=== PATIENT | female | born 1980 | race Caucasian/White ===

== ENCOUNTER 2017-05-05 09:42 | Emergency (ER) | payer MEDICAID ==
[~2017-05-05] VITALS: Ht 165.1 cm; Wt 100.0 kg
[~2017-05-05 09:42] MED LIST: ALBU6.7H INH; ALBU8I INH; ALPR.25 PO; HYDR-3535 PO; IBUP-238 PO; IBUP800T23 PO
[2017-05-05 09:44] VITALS: BP_SYST 118; BP_SYST 170; BP_DIAS 72; BP_DIAS 95; PULSE 105; PULSE 77; RESP 14; RESP 18; TEMP 97.7; TEMP 98.6; O2SAT 98
[2017-05-05] MEDS ORDERED: ALBUAER3 INH (09:53)
[2017-05-05] MEDS ORDERED: HYDR-3583 PO (09:53)
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
--- NOTE | 2017-05-05 10:48 | RADRPT ---
EXAM DATE/TIME: 05/05/2017 10:37 [facility] COMPARISON: CT BRAIN W/O CONTRAST, November 12, 2014, 12:19. INDICATIONS : Fall, laceration on bottom lip, dizziness, blurred vision RADIATION DOSE: 42.32 CTDIvol (mGy) MEDICAL HISTORY : None SURGICAL HISTORY : Tonsillectomy. ENCOUNTER: Initial ACUITY: 1 day PAIN SCALE: 9/10 LOCATION: Bilateral cranial TECHNIQUE: Multiple contiguous axial images were obtained of the head. Using automated exposure control and adj ustment of the mA and/or kV according to patient size, radiation dose was kept as low as reasonably a chievable to obtain optimal diagnostic quality images. DICOM format image data is available electro nically for review and comparison. FINDINGS: CEREBRUM: The ventricles are normal for age. No evidence of midline shift, mass lesion, hemorrhage or acute in farction. No extra-axial fluid collections are seen. POSTERIOR FOSSA: The cerebellum and brainstem are intact. The 4th ventricle is midline. The cerebellopontine angle i s unremarkable. EXTRACRANIAL: The visualized portion of the orbits is intact. SKULL: The calvaria is intact. No evidence of skull fracture. CONCLUSION: No acute disease. No significant change has occurred. Jason Ram MD on May 05, 2017 at 10:43 Board Certified Radiologist. This report was verified electronically.
--- NOTE | 2017-05-05 10:58 | RADRPT ---
EXAM DATE/TIME: 05/05/2017 10:37 [facility] COMPARISON: No previous studies available for comparison. INDICATIONS : Fall, laceration on bottom lip, dizziness, blurred vision RADIATION DOSE: 62.74 CTDIvol (mGy) MEDICAL HISTORY : SURGICAL HISTORY : Tonsillectomy. ENCOUNTER: Initial ACUITY: 1 day PAIN SCORE: 9/10 LOCATION: Bilateral facial TECHNIQUE: Volumetric scanning of the facial bones was performed. Using automated exposure control and adjustme nt of the mA and/or kV according to patient size, radiation dose was kept as low as reasonably achiev able to obtain optimal diagnostic quality images. DICOM format image data is available electronicThe [employer] y for review and comparison. FINDINGS: ORBITS: The orbital and infraorbital osseous structures are intact. The retroconal structures have a normal configuration. No radiopaque foreign bodies are seen. NASAL BONE: The nasal bone and maxillary spine are intact ZYGOMATIC ARCHES: Symmetric without evidence of fracture. SINUSES: Mild mucosal disease in some posterior right ethmoid air cells. NASAL CAVITY: The nasal septum is intact and midline. The lacrimal ducts are intact. SOFT TISSUES: Swelling of the lips. INTRACRANIAL: No intracranial air seen. CRIBIFORM PLATE: Grossly intact. CONCLUSION: No evidence of facial fracture Shaun Kelly MD on May 05, 2017 at 10:53 Board Certified Radiologist. This report was verified electronically.
[2017-05-05] MEDS ORDERED: MORPHINE SULFATE 2 MG/ML INJ IM ONE (11:00)
[2017-05-05] MEDS ORDERED: ONDANSETRON HCL 4 MG/2 ML VIAL IM ONE (11:00)
--- NOTE | 2017-05-05 11:29 | RADRPT ---
EXAM DATE/TIME: 05/05/2017 11:06 [facility] COMPARISON: No previous studies available for comparison. INDICATIONS : Fall. Right sided rib pain. MEDICAL HISTORY : None. SURGICAL HISTORY : None. ENCOUNTER: Initial ACUITY: 1 day PAIN SCORE: 6/10 LOCATION: Right anterior ribs FINDINGS: Multiple views of the right ribs were performed. There is no evidence of displaced fracture. No shonna tructive lesions or areas of periosteal thickening are seen. Expiratory view of the chest is negativ e for pneumothorax. The mediastinal structures are midline. CONCLUSION: No acute disease. No evidence of displaced rib fracture. Jason Ram MD on May 05, 2017 at 11:27 Board Certified Radiologist. This report was verified electronically.
[2017-05-05 11:31] VITALS: RESP 18
--- NOTE | 2017-05-05 11:31 | RADRPT ---
EXAM DATE/TIME: 05/05/2017 11:13 [facility] COMPARISON: SHOULDER RIGHT COMPLETE (>2VWS), December 18, 2014, 22:52. INDICATIONS : Fall. Right shoulder pain. MEDICAL HISTORY : None. SURGICAL HISTORY : None. ENCOUNTER: Initial ACUITY: 1 day PAIN SCORE: 8/10 LOCATION: Right shoulder FINDINGS: Multiple view examination of the right shoulder demonstrates no evidence of fracture or dislocation. The glenohumeral and acromioclavicular joints are maintained. There is normal range of motion betwe en internal and external rotation. Bony mineralization is normal. CONCLUSION: No acute disease. Jason Ram MD on May 05, 2017 at 11:28 Board Certified Radiologist. This report was verified electronically.
--- NOTE | 2017-05-05 12:20 | PD ---
Physical Exam Time Seen by Provider: 12:19 Data Data Last Documented VS Vital Signs Date Time Temp Pulse Resp B/P (MAP) Pulse Ox O2 Delivery O2 Flow Rate FiO2 05/05/17 11:31 18 05/05/17 10:21 99 Room Air 05/05/17 09:44 98.6 105 170/95 (120) Orders Orders Ct Brain W/O Iv Contrast(Rout) (05/05/17 10:21) Ct Facial Bones W/O Iv Cont (05/05/17 10:21) Shoulder, Complete (>2vws) (05/05/17 10:32) Ribs, Uni (W/Exp Cxr-Min 3vw) (05/05/17 10:32) Morphine Inj (Morphine Inj) (05/05/17 11:00) Ondansetron Inj (Zofran Inj) (05/05/17 11:00) MDM Medical Record Reviewed: Yes Supervised Visit with CECILY: No Procedures Procedure Narrative LACERATION LOCATION: Inferior lip LENGTH: [1 cm NUMBER OF STITCHES/RESHMA: 2 sutures REPAIR: The area of the laceration was prepped with Betadine and sterilely draped. The laceration was infiltrated with topical lidocaine the wound was copiously irrigated and explored without evidence of foreign body, tendon injury or neurovascular injury. The wound was closed using 5-0 Vicryl. This was a single layer repair. A sterile dressing was applied. The patient was advised to keep the dressing clean and dry. Patient tolerated the procedure well. Diagnosis Primary Impression: Fall (on) (from) other stairs and steps, initial encounter Additional Impressions: Laceration of lower lip Facial contusion Shoulder contusion Disposition: 01 DISCHARGE HOME Condition: Stable Karen Lopez YOLI May 05, 2017 12:20
[2017-05-05] MEDS ORDERED: CLIN300C5 PO (12:31)
[2017-05-05] MEDS ORDERED: IBUP1TAB5 PO (12:31)
[2017-05-05] MEDS ORDERED: IBUPROFEN 600 MG TAB PO ONE (12:45)
== END 2017-05-05 14:17 | disposition home or self-care (01) ==
LOC: NEPC 09:42
DX: S01.511A Laceration without foreign body of lip, initial encounter (principal); S00.83XA Contusion of other part of head, initial encounter; S40.011A Contusion of right shoulder, initial encounter; R11.0 Nausea; J45.909 Unspecified asthma, uncomplicated; W10.9XXA Fall (on) (from) unspecified stairs and steps, initial encounter
CPT/HCPCS: 12011; 70450; 70486; 71101; 73030; 96372; 99285; J2270; J2405

== ENCOUNTER 2017-07-18 16:11 | Emergency (ER) | payer MEDICAID ==
[~2017-07-18] VITALS: Ht 165.1 cm; Wt 90.0 kg
[~2017-07-18 16:11] MED LIST changes: -ALBU6.7H INH; -ALBU8I INH; +ALBUAER3 INH; -ALPR.25 PO; +CLIN300C5 PO; -HYDR-3535 PO; +HYDR-3583 PO; -IBUP-238 PO; +IBUP1TAB5 PO; -IBUP800T23 PO
[2017-07-18 16:23] VITALS: BP 122/75; PULSE 71; RESP 17; TEMP 98.1; O2SAT 98
[2017-07-19] MEDS ORDERED: IBUP1TAB7 PO (09:01)
[2017-07-19] MEDS ORDERED: PRED-503 PO (09:01)
[2017-07-19] MEDS ORDERED: AZIT500T2 PO (09:01)
[2017-07-19] MEDS ORDERED: ALBU0.08 NEB (09:01)
[2017-07-19] MEDS ORDERED: NEBULIZER1 MI1 (09:01)
[2017-07-19] MEDS ORDERED: VENTAER INH (09:01)
== END 2017-07-18 18:30 | disposition left against medical advice (07) ==
LOC: NED 16:11
DX: R07.9 Chest pain, unspecified (principal)
CPT/HCPCS: 99281

== ENCOUNTER 2017-07-19 07:25 | Emergency (ER) | payer MEDICAID ==
[~2017-07-19] VITALS: Ht 165.1 cm; Wt 100.0 kg
[2017-07-19 07:40] VITALS: BP 146/77; PULSE 68; RESP 18; TEMP 98.4; O2SAT 99
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
[2017-07-19] MEDS ORDERED: RESP: ALBUTEROL 2.5 MG/IPRATROPIUM 0.5 MG NEB (SCH) INH ONE ×2 (08:15→09:15)
[2017-07-19] MEDS ORDERED: predniSONE 20 MG TAB PO ONE (08:15)
[2017-07-19] MEDS ORDERED: ACETAMINOPHEN 325 MG TAB PO ONE (08:30)
[2017-07-19] MEDS ORDERED: ALBU0.08 NEB (09:01)
[2017-07-19] MEDS ORDERED: VENTAER INH (09:01)
[2017-07-19] MEDS ORDERED: NEBULIZER1 MI1 (09:01)
[2017-07-19] MEDS ORDERED: AZIT500T2 PO (09:01)
[2017-07-19] MEDS ORDERED: PRED-503 PO (09:01)
[2017-07-19] MEDS ORDERED: IBUP1TAB7 PO (09:01)
== END 2017-07-19 09:30 | disposition home health service (06) ==
LOC: NEPD 07:25
DX: J45.901 Unspecified asthma with (acute) exacerbation (principal); H66.92 Otitis media, unspecified, left ear; F17.200 Nicotine dependence, unspecified, uncomplicated
CPT/HCPCS: 94640; 94664; 99283; J7512